=== PATIENT | male | born 1935 | race Caucasian/White ===

== ENCOUNTER 2019-06-24 12:58 | Inpatient (IN) | payer MEDICARE ==
[~2019-06-24] VITALS: Ht 170.2 cm; Wt 83.2 kg
[2019-06-24 15:44] VITALS: BP 161/82
--- NOTE | 2019-06-24 16:00 | NUR ---
Admission Note with Justification for Admission to [facility] Patient admitted to [facility] for protective oversight for emergency stabilization of acute psychiatric crisis. Pt admitted from: [facility] where he was inpatient. Mode of arrival: EMS Accompanied By: EMS Precipitating behaviors that initiated intake and admission: it was reported that patient has had passive SI thoughts, increased anxiety, insomnia, depression, panic attacks and has been trying to stop taking benzodiazepines to which he has severe dependence. Description of failure of out patient attempts at stabilization in previous setting list behavior and medication trials: Patient moved from [place] to [place] to stay with his son after a fall. Patient has been trying to stop taking xanax by weaning himself off but was unsuccessful. Patient was hospitalized at [facility] and medication adjustments were made. He has also seen an outpatient mental health professional in the past. Behaviors and assessment findings upon admission: Patient arrived via EMS from [facility] at 1530. He is calm, pleasant and oriented x4. Vital signs were obtained, belongings inventoried and brief physical was performed. Patient has no areas of skin breakdown. He is up adlib and uses no assistive devices. He stated that in 2019 he had a bad fall, spent about a week at a PT rehab facility and then moved from [place] to [place] to live with his son. He stated he feels like "a bother" and that he "feels he is imposing on his son". He stated he was originally prescribed Xanax PRN many years ago because he would become very nervous whenever he had to go to the doctor. Over the years he began taking more and more Xanax little by little. He stated he has attempted to wean himself off of the Xanax but has not been unable to. He stated he has had depression for at least 2 years and has lost interest in much of the things he formerly enjoyed. He has found no relief with the antidepressants that he has tried. Patient introduced to his roommate and escorted to the day room for a snack. Dinner tray ordered. Plan: Admit for protective oversight for adjustment and stabilization of medications, behaviors and mood. Intense treatment regimen including groups, medication adjustments, therapy, consistent regimen for ADL's, self care, and sleep hygiene. Daily monitoring by Inpatient staff, Psychiatry, and Medical Physician.
[2019-06-24] MEDS ORDERED: MAGNESIUM HYDROXIDE 2,400 MG/30 ML ORAL.SUSP. PO PRN (16:30)
[2019-06-24] MEDS ORDERED: METHYL SALICYLATE/MENTHOL TOPICAL OINTMENT 57GM TUBE. TP PRN (16:30)
[2019-06-24] MEDS ORDERED: DOCU50CA11 PO (17:37)
[2019-06-24] MEDS ORDERED: CYAN100031 PO (17:37)
[2019-06-24] MEDS ORDERED: BISM262T12 PO (17:37)
[2019-06-24] MEDS ORDERED: ESCITALOPRAM OX10 MG PO (17:37)
[2019-06-24] MEDS ORDERED: CAPT50TA2 PO (17:37)
[2019-06-24] MEDS ORDERED: LOVA40TA2 PO (17:37)
[2019-06-24] MEDS ORDERED: LEVO50TA5 PO (17:37)
[2019-06-24] MEDS ORDERED: THIA100T57 PO (17:37)
[2019-06-24] MEDS ORDERED: MAG355OR14 PO (17:37)
[2019-06-24] MEDS ORDERED: MIRT15TA3 PO (17:37)
[2019-06-24] MEDS ORDERED: AMLO5TAB10 PO (17:37)
[2019-06-24] MEDS ORDERED: DIAZ5TAB PO ×2 (17:37)
[2019-06-24] MEDS ORDERED: SUCR1TAB PO (17:37)
[2019-06-24] MEDS ORDERED: HYDR-2145 PO (17:37)
--- NOTE | 2019-06-24 17:41 | NUR ---
Patient is from [place] originally. 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 He retired at the age of 73. After longterm he and his traveled. She 6 years ago. Patient has a history of "heavy alcohol use" and smoked cigarettes until 40 years ago. He stated he no longer drinks. Patient stated that he originally began taking Xanax PRN many years ago (he states probably 40 years ago) because he had a fear of doctors and would take one before an appointment. Throughout the years his prescription was changed to PRN QID for general anxiety and he was taking 1mg 4 times per day. He stated that at times he took it 5-7 times per day. He had decreased his use to TID and then BID but has been unable to stop taking it. He feels that his depression has worsened in the last 2 years. He states he has isolated himself from friends, stopped watching television and going to worship. He stated he had several panic attacks at worship which is one reason he stopped going. He eventually stopped driving r/t dizziness that he was having during this time. He does not feel that any medication that he has been on for depression has decreased or increased his depression. He stated that he has thought he "might as well be " but does not feel that he would attempt suicide. Patient states he has had trouble sleeping for many years. At some point in 2019 he stated he had a pretty bad fall where he sustained a subdural hematoma. He fell in his home and was on the floor for a long time. He was hospitalized for several days in [place], [place] and became weak. When he discharged, he went to a Rehab place for PT/OT to increase his strength. After finishing the therapy, his son came up from [place] and moved the patient in with him to live. Patient states that he appreciates his son allowing him to live there but that he feels "like a bother" and as if he is "imposing". He stated that the original plan was that he would just move in with his son and daughter in law "for the winter". He would like to eventually move back to [place] where he owns a home and has friends. Airam Huggins RN
[2019-06-24] MEDS ORDERED: MAGNESIUM CARBONATE PO PRN (17:45)
[2019-06-24] MEDS ORDERED: ALGINIC ACID PO PRN (17:45)
[2019-06-24] MEDS ORDERED: ALUMINUM HYDROXIDE PO PRN (17:45)
[2019-06-24] MEDS ORDERED: DOCUSATE SODIUM 100 MG CAPSULE PO PRN (18:00)
[2019-06-24] MEDS ORDERED: BISMUTH SUBSALICYLATE 262 MG/15 ML ORAL.SUSP 236ML BOTTLE. PO PRN (18:00)
[2019-06-24 19:05] LABS: BASO # 0.1 x10^3/uL (0.0-0.2); BASO % 1 % (0-3); EOS # 0.4 x10^3/uL (0.0-0.7); EOS % 6 % (0-3); HEMATOCRIT 42.1 % (39.0-53.0); LYMPH # 1.3 x10^3/uL (1.0-4.8); LYMPH % 19 % (24-48); MEAN CORPUSCULAR HEMOGLOBIN 28 pg (25-35); MEAN CORPUSCULAR HGB CONC 33 g/dL (31-37); MEAN CORPUSCULAR VOLUME 84 fL (79-100); MONO # 0.8 x10^3/uL (0.0-1.1); MONO % 12 % (0-9); NEUT # 4.4 x10^3uL (1.8-7.7); NEUT % 62 % (31-73); PLATELET COUNT 258 x10^3/uL (140-400); RED BLOOD COUNT 5.01 x10^6/uL (4.30-5.70); RED CELL DISTRIBUTION WIDTH 15.2 % (11.5-14.5)
[2019-06-24 19:44] LABS: ALBUMIN 3.7 g/dL (3.4-5.0); CALCIUM 8.5 mg/dL (8.5-10.1); CREATININE 1.5 mg/dL (0.7-1.3); GFR 44.6; MAGNESIUM 1.8 mg/dL (1.8-2.4); POTASSIUM 3.7 mmol/L (3.5-5.1); TOTAL BILIRUBIN 0.3 mg/dL (0.2-1.0); TOTAL PROTEIN 7.3 g/dL (6.4-8.2)
[2019-06-24] MEDS: traZODone 50 MG TABLET. PO SCH (19:51)
[2019-06-24] MEDS: MIRTAZAPINE 15 MG TABLET PO SCH (19:51)
[2019-06-24] MEDS: SUCRALFATE 1 GM TABLET. PO SCH (19:51)
[2019-06-24] MEDS: diazePAM 5 MG TABLET PO SCH (19:51)
[2019-06-24] MEDS: LISINOPRIL 10 MG TABLET PO SCH (19:52)
--- NOTE | 2019-06-24 20:54 | PDOC ---
Exam Note: Naveed Note: Please also refer to the separate dictated note~for this date of service dictated separately. Discussed the patient with Nursing staff reviewed the chart.~Reviewed interim history and current functioning. Reviewed vital signs,~Labs/ Radiology~and current medications noted below. Continue current treatment with the changes noted in the dictated addendum note Assessment: Vital Signs/I&O: Vital Signs Date Time Temp Pulse Resp B/P (MAP) Pulse Ox O2 Delivery O2 Flow Rate FiO2 06/24/19 19:52 83 161/82 06/24/19 15:44 98.0 18 97 Room Air Labs: Laboratory Tests Test 06/24/19 18:45 White Blood Count 7.0 x10^3/uL (4.0-11.0) Red Blood Count 5.01 x10^6/uL (4.30-5.70) Hemoglobin 14.0 g/dL (13.0-17.5) Hematocrit 42.1 % (39.0-53.0) Mean Corpuscular Volume 84 fL (79-100) Mean Corpuscular Hemoglobin 28 pg (25-35) Mean Corpuscular Hemoglobin Concent 33 g/dL (31-37) Red Cell Distribution Width 15.2 % (11.5-14.5) H Platelet Count 258 x10^3/uL (140-400) Neutrophils (%) (Auto) 62 % (31-73) Lymphocytes (%) (Auto) 19 % (24-48) L Monocytes (%) (Auto) 12 % (0-9) H Eosinophils (%) (Auto) 6 % (0-3) H Basophils (%) (Auto) 1 % (0-3) Neutrophils # (Auto) 4.4 x10^3uL (1.8-7.7) Lymphocytes # (Auto) 1.3 x10^3/uL (1.0-4.8) Monocytes # (Auto) 0.8 x10^3/uL (0.0-1.1) Eosinophils # (Auto) 0.4 x10^3/uL (0.0-0.7) Basophils # (Auto) 0.1 x10^3/uL (0.0-0.2) Sodium Level 137 mmol/L (136-145) Potassium Level 3.7 mmol/L (3.5-5.1) Chloride Level 99 mmol/L (98-107) Carbon Dioxide Level 28 mmol/L (21-32) Anion Gap 10 (6-14) Blood Urea Nitrogen 19 mg/dL (8-26) Creatinine 1.5 mg/dL (0.7-1.3) H Estimated GFR (Cockcroft-Gault) 44.6 BUN/Creatinine Ratio 13 (6-20) Glucose Level 113 mg/dL (70-99) H Calcium Level 8.5 mg/dL (8.5-10.1) Magnesium Level 1.8 mg/dL (1.8-2.4) Total Bilirubin 0.3 mg/dL (0.2-1.0) Aspartate Amino Transferase (AST) 16 U/L (15-37) Alanine Aminotransferase (ALT) 28 U/L (16-63) Alkaline Phosphatase 68 U/L (46-116) Total Protein 7.3 g/dL (6.4-8.2) Albumin 3.7 g/dL (3.4-5.0) Albumin/Globulin Ratio 1.0 (1.0-1.7) Current Medications: Meds: Current Medications Medications (Trade) Dose Ordered Sig/Adrianne Route PRN Reason Start Time Stop Time Status Last Admin Dose Admin Diazepam (Valium) 5 mg QHS PO 06/24/19 21:00 06/24/19 19:51 Mirtazapine (Remeron) 15 mg HS PO 06/24/19 21:00 06/24/19 19:51 Sucralfate (Carafate) 1 gm BID PO 06/24/19 21:00 06/24/19 19:51 Lisinopril (Prinivil) 10 mg BID PO 06/24/19 21:00 06/24/19 19:52 Trazodone HCl (Desyrel) 50 mg QHS PO 06/24/19 21:00 06/24/19 19:51 I have reviewed the current psychotropics carefully including drug interactions. Risk benefit ratio favors no change other than as noted in my dictated progress note. Diagnosis: Problems: (1) MDD (major depressive disorder) (2) Anxiety disorder (3) Major depressive disorder, recurrent episode (4) Impulse control disorder (5) Suicidal ideation NEISHA CIFUENTES MD Jun 24, 2019 20:54
--- NOTE | 2019-06-24 20:55 | NUR ---
Pt sitting in his room, visiting with roommate at shift change. Pt A/O, calm, pleasant, and interactive. Pt cooperative with assessment and compliant with medications administered whole.
[2019-06-24] MEDS: traZODone 50 MG TABLET. PO PRN (21:58)
--- NOTE | 2019-06-24 22:49 | EKG ---
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
[2019-06-25 05:47] VITALS: BP 138/76
--- NOTE | 2019-06-25 07:33 | NUR ---
Patient states he is very anxious. Given scheduled 0900 Valium at this time. Patient currently has no PRN anxiolytics prescribed.
[2019-06-25 07:36] LABS: BACTERIA,URINE 0 /HPF (0-FEW); BILIRUBIN,URINE NEG (NEG); CLARITY,URINE CLEAR; COLOR,URINE YELLOW; GLUCOSE,URINE NEG (NEG); NITRITE,URINE NEG (NEG); SQUAMOUS EPITHELIAL CELL,UR OCC /LPF; UROBILINOGEN,URINE 0.2 mg/dL (0.2 mg/dL); WBC,URINE RARE /HPF (0-4)
[2019-06-25] MEDS: diazePAM 5 MG TABLET PO SCH ×2 (07:41→20:56)
[2019-06-25] MEDS ORDERED: CITALOPRAM 20 MG TABLET. PO SCH (09:00)
[2019-06-25] MEDS: LISINOPRIL 10 MG TABLET PO SCH ×2 (09:56→20:56)
[2019-06-25] MEDS: amLODIPine BESYLATE 5 MG TABLET PO SCH (09:57)
[2019-06-25] MEDS: SUCRALFATE 1 GM TABLET. PO SCH ×2 (09:57→20:56)
[2019-06-25] MEDS: ATORVASTATIN CALCIUM 10 MG TABLET. PO SCH (09:58)
[2019-06-25] MEDS: THIAMINE 100 MG TABLET. PO SCH (09:58)
[2019-06-25] MEDS: CYANOCOBALAMIN (VITAMIN B-12) 1,000 MCG TABLET. PO SCH (09:58)
[2019-06-25] MEDS: hydroCHLOROthiazide 25 MG TABLET PO SCH (09:58)
--- NOTE | 2019-06-25 11:15 | NUR ---
WEEKLY NOTE: Pt was admitted just last night and appears to be doing okay. Pt is eating 100% and slept 6.75 hours last night. Pt is cooperative and compliant with cares and direction. Pt gets along well with his roommate and is encouraged to attend groups while here. Pt will have his Celexa stopped and start Zoloft 25mg q daily for 3 days then increase to 50mg. Records from [facility] [place] have been requested for pt Head CT and materials to discuss drug withdraw. SW to complete PSA this afternoon and will contact the family.
--- NOTE | 2019-06-25 11:54 | HP ---
ADMIT DATE: 06/24/2019 This late entry 06/24/2019 covers elements not covered in my initial note. IDENTIFYING DATA: The patient is an 84-year-old male, referred to us from [facility] where he was hospitalized for the past few days on account of worsening anxiety with increasing usage of Xanax and having suicidal ideation. The patient is wanting to get off the Xanax and was changed to Valium at [facility], but it was felt he needed further inpatient psychiatric care post-stabilization since he resides at home and had a relatively unstructured situation, has been more depressed, suicidal, and potential danger to himself. CHIEF COMPLAINT: "I have panic attacks. I can't sleep. Xanax help me with that, but I want to get off it." HISTORY OF PRESENT ILLNESS: The patient has an approximate 2-year history of increasing Xanax abuse and most recently, he has been using about 2.5-3 mg a day. He admits to feeling depressed at times, overwhelmed with panic attacks and symptoms of agoraphobia, marked insomnia. He took 5-7 Xanax in overdose attempt, though he states he was just trying to quell his anxiety. No clear history of bipolar disorder or homicidal ideation. PAST PSYCHIATRIC HISTORY: Positive for depression, anxiety, panic attacks. MEDICAL HISTORY: Positive for past history of alcohol abuse, GERD, hypertension, essential tremors, history of subdural hematoma, history of falls, aortic aneurysm, hyperlipidemia, hypothyroidism, blurred vision, history of CA prostate, status post prostatectomy, migraine headaches, arthritis, joint pain, status post cataract extraction. Apparently, a CT head was done at [facility]. We will get those results. Hard of hearing, CODE STATUS: Full code. DRUG ALLERGIES: Negative. ACCU-CHEKS: Negative. Ambulates up ad renu. CURRENT PSYCHOTROPICS: Valium 2.5 mg a.m., 5 mg at bedtime, Celexa 20 mg a day, Remeron 15 mg at bedtime, trazodone 50 mg at bedtime, may repeat x 1 FAMILY HISTORY: Noncontributory. SOCIAL HISTORY: Positive for alcohol abuse, which the patient minimizes. No physical, sexual or elder abuse. He is not known to be a perpetrator. REACTION TO HOSPITALIZATION: The patient accepting of this. ASSETS: Supportive family. The patient was living in [place] by himself since his about 2 years back and then moved to this area to be closer to his son, but he has been unable to manage at home with the son's family. No physical, sexual or elder abuse history is noted. Not known to be a perpetrator. MENTAL STATUS EXAMINATION: The patient was seen individually evening of 06/24/2019. He is reasonably oriented, somewhat hard of hearing, I had to talk loudly into his ear. Speech is coherent, abstraction fair, computation somewhat impaired, language function intact, attention span short. Mood is depressed, anxious. Affect is mood congruent. He is quite restless, anxious. No active suicidal or homicidal ideation. Attention span short. LABORATORY DATA: Reviewed. IMPRESSION: Major depressive disorder, recurrent, severe panic disorder with agoraphobia, anxiety disorder, unspecified; rule out bipolar disorder, unspecified; past history of alcohol abuse. Rest as above. PLAN: Admit to geropsychiatry unit at [facility]. I will see the patient daily individually from a psychiatric standpoint. Medical followup with Dr. Segovia. We will continue Valium at current dosage. Change Celexa to Zoloft 25 mg, increasing dosage and may need to increase the Seroquel, but we will make all these decisions post baseline assessment. Estimated length of stay 10-12 days. DISPOSITION PLANS: The patient wants to return to [place], but for now, he will return back to his son's home in [place]. NEISHA CIFUENTES MD DR: TANNER/zonia JOB#: [id number] / [id number]
--- NOTE | 2019-06-25 13:02 | NUR ---
Patient came to nurses station after lunch to request something for anxiety. He had visible tremble and was wringing his hands. Dr. Kendall estrada, received order for PRN Hydroxyzine 25mg PRN Q2hrs for anxiety, max daily dose 100mg/24hrs. Dr. Argueta also stated that patient could have one dose of seroquel 12.5 mg at this time.
[2019-06-25] MEDS ORDERED: QUEtiapine 25 MG TABLET. PO ONE (13:15)
[2019-06-25] MEDS: hydrOXYzine HCL 25 MG TABLET PO PRN ×2 (13:26→20:56)
--- NOTE | 2019-06-25 14:00 | NUR ---
PSYCHOSOCIAL ASSESSMENT ADMISSION DATE: 06/24/19 CONTACT INFORMATION: DPOA/Guardian Contact Name: Roosevelt Rouse JR Contact Address: [address] [place] [id number] Contact Phone #: ETHNIC ORIGIN: REASONS FOR ADMISSION: Anxiety/Panic Sig. Change Sleep Suicidal ideation ADDITIONAL ADMISSION COMMENTS: According to the intake, pt is addicted to Xanax and wants to quit; having passive SI, anxious and insomnia REASON FOR ADMISSION IN PATIENT/FAMILY'S OWN WORDS: According to pt, he really wants to get his anxiety together so he can go home and get back into a routine. PATIENT/FAMILY EXPECTATIONS FOR ADMISSION: Medication management Decrease in anxiety and Xanax use. LIVING SITUATION: Patient lives with: Child/children Other living arrangements: Lives with his son in [place], [place] FAMILY RELATIONS: Marital Status: # of Marriages: 1 # of Children: 2 [facility] Family Support: Unavailable Additional Comments r/t Family: Pt met his , Tracie, through a mutual friend. He reports that [place] and his friend's girlfriend brought Tracie. Pt reports that Tracie was 27 when they met and he was 60. Pt has 2 children from this marriage Roosevelt ENGLISH and a dtr Vilma. Pt roughly 6 years ago. SIGNIFICANT PSYCHIATRIC/MEDICAL HISTORY: Psychiatric/Treatment History: This is pt first admission to [facility]. He reports hx of anxiety and panic. Pertinent Family History: None HISTORICAL DATA: Childhood Environment: Stressful Supportive Childhood Environment Additional Comments: Pt reports that he had a loving family environment. He reports soem stress as his father worked 2 jobs: his day job at a factory and his evening job playing piano in a local tavern. "he'd come home go to sleep and start his day all over again 3-4 hours later". Pt reports that his mother was great; however, over time, his father did start to drink more than normal and once he bought one of the local taverns, he drinking steadily increase. 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 However, pt has not attended for some time as he had a Panic attack during the service and cannot bring himself to go back. Sexual orientation: Heterosexual Educational Level: Pt graduated the 12th grade (high school). Past/Present Interests/Hobbies: Jacinto girls, fish, boat and perez. Financial support/resources: Halfway/Pension Social Security Monthly income: Person handling finances: Pt son cares for pt financials. Do you have a history of legal problems: N Cultural considerations: None SOCIAL RELATIONSHIPS-CURRENT/PAST: Psychiatrist: None PCP: Dr. Sharmila Wiggins Counselor/Therapist: None Veterans' Administration: None Support Group: None Elementary School Science Teacher/Interlocking And Signal Mechanic: None Other relationships: None STRENGTHS & WEAKNESSES: Patient's strengths: Good verbal skills Ambulatory Approachable Other patient strengths: Patient's weaknesses: Lack of resources Other Other patient weaknesses: Increase in anxiety and Xanax use PRELIMINARY PLAN OF TREATMENT: Preliminary plan: Dec. Anxiety/Panic Dec. Symp. Depression Decrease Isolation Promote Coping Skill Medication Stabilization Other preliminary treatment comments: DISCHARGE PLANNING: Discharge planning/disposition: Current Living Arrange. Additional discharge needs identified: Need for either [facility] or home with son and continued mental health services. ADDITIONAL INFORMATION: Other Pertinent Data: SW Corn Popper completed PSA with pt and SW sat in. Pt was alert enough to report that he knows his past but if you asked him things about yesterday, he would not be able to report anything. He even stated "I won't remember your name even if you tell me 20x". Pt reports that he would like to go back and live in his hometown of [place], [place]. "I've lived there all my life, I don't want to live down here". Pt is hopeful to have his Xanax addiction decreased. SW will plan to contact pt son to get more information.
[2019-06-25 15:23] VITALS: BP 120/77
[2019-06-25 16:00] LABS: THYROID STIM HORMONE (TSH) 3.08 uIU/mL (0.358-3.740)
[2019-06-25] MEDS: QUEtiapine 25 MG TABLET. PO SCH (17:20)
[2019-06-25] MEDS: MIRTAZAPINE 15 MG TABLET PO SCH (20:56)
[2019-06-25] MEDS: traZODone 50 MG TABLET. PO PRN (20:57)
[2019-06-25] MEDS: traZODone 50 MG TABLET. PO SCH (20:57)
--- NOTE | 2019-06-25 21:01 | PDOC ---
Exam Note: Naveed Note: Please also refer to the separate dictated note~for this date of service dictated separately.~Patient seen individually. Discussed the patient with Nursing staff reviewed the chart.~Reviewed interim history and current functioning. Reviewed vital signs,~Labs/ Radiology~and current medications noted below. Continue current treatment with the changes noted in the dictated addendum note Assessment: Vital Signs/I&O: Vital Signs Date Time Temp Pulse Resp B/P (MAP) Pulse Ox O2 Delivery O2 Flow Rate FiO2 06/25/19 20:56 76 120/77 06/25/19 15:23 98.3 18 98 Room Air I & O 06/24/19 06/24/19 06/25/19 15:00 23:00 07:00 Intake Total 480 ml Balance 480 ml Labs: Laboratory Tests Test 06/25/19 05:48 Urine Collection Type Unknown Urine Color Yellow Urine Clarity Clear Urine pH 7.0 Urine Specific [place] 1.020 Urine Protein Neg (NEG-TRACE) Urine Glucose (UA) Neg mg/dL (NEG) Urine Ketones (Stick) Neg mg/dL (NEG) Urine Blood Small (NEG) Urine Nitrite Neg (NEG) Urine Bilirubin Neg (NEG) Urine Urobilinogen Dipstick 0.2 mg/dL (0.2 mg/dL) Urine Leukocyte Esterase Neg (NEG) Urine RBC 1-2 /HPF (0-2) Urine WBC Rare /HPF (0-4) Urine Squamous Epithelial Cells Occ /LPF Urine Bacteria 0 /HPF (0-FEW) Current Medications: Meds: Current Medications Medications (Trade) Dose Ordered Sig/Adrianne Route PRN Reason Start Time Stop Time Status Last Admin Dose Admin Amlodipine Besylate (Norvasc) 5 mg DAILY PO 06/25/19 09:00 06/25/19 09:57 Diazepam (Valium) 2.5 mg DAILY PO 06/25/19 09:00 06/25/19 07:41 Hydrochlorothiazide (Hydrodiuril) 25 mg DAILY PO 06/25/19 09:00 06/25/19 09:58 Cyanocobalamin (Vitamin B-12) 2,000 mcg DAILY PO 06/25/19 09:00 06/25/19 09:58 Citalopram Hydrobromide (CeleXA) 20 mg DAILY PO 06/25/19 09:00 06/25/19 11:06 DC 06/25/19 10:00 Atorvastatin Calcium (Lipitor) 10 mg DAILY PO 06/25/19 09:00 06/25/19 09:58 Thiamine HCl (Vitamin B-1) 250 mg DAILY PO 06/25/19 09:00 06/25/19 09:58 Quetiapine Fumarate (SEROquel) 12.5 mg 0900,1700 PO 06/25/19 17:00 06/25/19 17:20 Hydroxyzine HCl (Atarax) 25 mg PRN Q2HR PRN PO anxiety 06/25/19 13:00 06/25/19 20:56 Quetiapine Fumarate (SEROquel) 12.5 mg 1X ONCE PO 06/25/19 13:15 06/25/19 13:16 DC 06/25/19 13:26 I have reviewed the current psychotropics carefully including drug interactions. Risk benefit ratio favors no change other than as noted in my dictated progress note. Diagnosis: Problems: (1) MDD (major depressive disorder) (2) Anxiety disorder (3) Major depressive disorder, recurrent episode (4) Impulse control disorder (5) Suicidal ideation NEISHA CIFUENTES MD Jun 25, 2019 21:01
--- NOTE | 2019-06-25 21:37 | NUR ---
Patient is located in patient room at time of assessment. Patient reports having anxiety. Patient also states he needs something for sleep. Patient is compliant with medications and assessment. Patient takes medications whole and reports no pain at this time. Patient was given PRN Valium,. PRN trazodone, and PRN hydroxyzine at HS.
[2019-06-25 22:06] LABS: THYROXINE 7.1 ug/dL (4.5-12.0)
[2019-06-26 00:06] LABS: HEMOGLOBIN A1C 5.8 % (4.8-5.6)
--- NOTE | 2019-06-26 01:14 | CONS ---
DATE OF CONSULTATION: 06/25/2019 REASON FOR CONSULTATION: Medical management. 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 Medically, the patient has multiple medical problems including alcohol abuse, hypertension, essential tremor, history of subdural hematoma after a fall, aortic sclerosis, hyperlipidemia, hypothyroidism, history of prostate cancer, status post prostatectomy, migraine headache, and arthritis. PAST SURGICAL HISTORY: Significant for prostatectomy and bilateral cataract extraction. ALLERGIES: He has no known drug allergies. MEDICATIONS: He is currently on following medications: He is on lovastatin 40 mg daily, amlodipine besylate 5 mg daily, captopril 50 mg twice a day, escitalopram oxalate 10 mg daily, mirtazapine 15 mg at bedtime, diazepam 5 mg at bedtime, diazepam 2.5 mg daily, hydrochlorothiazide 25 mg once a day, Gaviscon liquid 15 mL after meals and as needed, bismuth subsalicylate for Pepto-Bismol 30 mL 4 times a day as needed, Colace 50 mg twice a day, sucralfate 1 gram twice a day, levothyroxine sodium 50 mcg once a day, cyanocobalamin 2000 mcg once a day, and thiamine 250 mg once a day. FAMILY HISTORY: Noncontributory. SOCIAL HISTORY: He is , has a son and daughter. He does not smoke, but used to drink alcohol heavily. Currently, he is retired and lives with his son. REVIEW OF SYSTEMS: As per history of present illness. PHYSICAL EXAMINATION GENERAL: When I examined him this afternoon, he was sitting at the edge of the bed comfortably in no apparent distress. There is no pallor, jaundice, cyanosis, or thyromegaly. No jugular venous distension. No limb edema. VITAL SIGNS: His heart rate was 76, blood pressure 120/77, temperature 98.3, respiratory rate was 18, and oxygen saturation was 98%. HEAD, EYES, EARS, NOSE, AND THROAT: Showed he is normocephalic, atraumatic. NECK: Supple. HEART: Showed normal first and second heart sounds. No gallop, rub or murmur. CHEST: Clear to auscultation. No crepitation or rhonchi. ABDOMEN: Slightly distended, soft, nontender. NEUROLOGIC: He is awake, alert, responding appropriately. All cranial nerves intact. EXTREMITIES: He moves extremities without difficulty, ambulates without assistance or assistive devices. LABORATORY DATA: On admission showed a white cell count 7000, hemoglobin 14, hematocrit 42, MCV 84 and platelet count 258,000. Serum sodium was 137, potassium 3.7, chloride 99, bicarbonate 28, anion gap of 10, BUN 19, creatinine 1.5, estimated GFR was 44 mL per minute, his glucose 113, calcium was 8.5, and magnesium 1.8. Serum iron, TIBC and iron saturation are all consistent with iron deficiency anemia, although his hemoglobin and hematocrit are within normal limits. His total bilirubin, AST, ALT, alkaline phosphatase were normal. Total protein 7.3, albumin 3.7. Serum triglycerides were 83, total cholesterol 182, LDL cholesterol 108, VLDL was 16, and HDL was 58 and the ratio was 3. His B12 1087 pg. His 25-hydroxy vitamin D is low at 23 and TSH was normal at 3.080. His urinalysis was essentially unremarkable and his treponema pallidum antibody was nonreactive. 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 He has passive suicidal ideation, extremely anxious, feels like he is having panic attacks, has insomnia, experiencing Xanax withdrawal, all this in a background of major depressive disorder, generalized anxiety disorder, benzodiazepine use that is severe. Medically, he has obviously history of alcohol abuse, has also hypertension, essential tremors, hyperlipidemia, hypothyroidism, migraine headache as well as arthritis, however, the patient generally seems to be all in all medically stable. His vital signs are within normal limits. His lab works are within acceptable range, except perhaps his vitamin D is low. I will start him on cholecalciferol 50,000 units once a week. I will obviously follow all the lab work that are still pending at the time of this dictation and make any necessary recommendations. Thank you, Dr. Argueta for allowing me to participate in the care of this patient. SPEEDY DWYER MD DR: EDMOND/zonia JOB#: [id number] / [id number]
[2019-06-26] MEDS: LEVOTHYROXINE 50 MCG TABLET PO SCH (05:29)
[2019-06-26] MEDS: hydrOXYzine HCL 25 MG TABLET PO PRN (05:29)
[2019-06-26 05:50] VITALS: BP 141/78
[2019-06-26] MEDS: hydroCHLOROthiazide 25 MG TABLET PO SCH (08:17)
[2019-06-26] MEDS: CYANOCOBALAMIN (VITAMIN B-12) 1,000 MCG TABLET. PO SCH (08:17)
[2019-06-26] MEDS: SERTRALINE 25 MG TABLET. PO SCH (08:17)
[2019-06-26] MEDS: SUCRALFATE 1 GM TABLET. PO SCH ×2 (08:17→20:23)
[2019-06-26] MEDS: LISINOPRIL 10 MG TABLET PO SCH ×2 (08:18→20:24)
[2019-06-26] MEDS: diazePAM 5 MG TABLET PO SCH ×2 (08:18→20:24)
[2019-06-26] MEDS: amLODIPine BESYLATE 5 MG TABLET PO SCH (08:18)
[2019-06-26] MEDS: ATORVASTATIN CALCIUM 10 MG TABLET. PO SCH (08:18)
[2019-06-26] MEDS: THIAMINE 100 MG TABLET. PO SCH (08:19)
[2019-06-26] MEDS: QUEtiapine 25 MG TABLET. PO SCH ×2 (08:19→17:00)
--- NOTE | 2019-06-26 10:16 | NUR ---
Activity Therapy Assessment Completed based on notes, observation, and interview. Pt. was in his room with his room when therapist knocked on door. Pt. was awake and willing to speak with therapist. Pt. ambulates independently, has strong verbal skills, in tact memory, and pleasant demeanor. Pt. shared his story of how he came to [facility]- he has been using anxiety meds excessively for years and is trying to wean himself off them. He is from [place], [place] where he lived with his until she passed about six years ago. He had a fall a year ago and was very weak after rehab. His son moved him out to [place] to live with him and his daughter in law. While there, he states he 'feels like a burden' and 'wishes he were ' but does not believe he would attempt anything. Pt. is here for help with anxiety, depression, and SI. 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 When asked about interests, Pt. stated 'I haven't had hobbies or things for a long time. I've lost interest in just about everything.' Pt. followed up by stating 'If you remind me and invite me, I will try a group or two. I get overwhelmed and anxious when everyone is loud though.' Pt. stated he's used 'alcohol and meds' for stress and would appreciate new coping skills. Pt. is often withdrawn to his room and rarely comes out to the day room. Pt. socializes well with roommate and is kind and cooperative with staff. Initial goal aimed to increase engagement: Pt. will participate in at least two Activity Therapy groups per week.
[2019-06-26 15:43] VITALS: BP 125/69
--- NOTE | 2019-06-26 16:15 | NUR ---
SW was stopped by pt to ask if he would be able to talk to a SW. SW informed him that she is his SW and pt wanted to see if he would be able to discharge back home to [place]. He reports that he has plenty of help there and support from friends and his yarsanism community. He is aware that his son is looking for placement/[facility] and he does not wish to stay in [place]. FADIA has attempted 2x to contact pt son and was told that the number was not in service. FADIA will attempt again next week to discuss discharge options for pt.
[2019-06-26] MEDS ORDERED: traZODone 100 MG TABLET. PO PRN (18:15)
[2019-06-26] MEDS ORDERED: traZODone 50 MG TABLET. PO SCH (18:15)
--- NOTE | 2019-06-26 18:18 | NUR ---
Pt up for meals. Pt usually stays in room most times. Has been compliant with meds and cares. At breakfast pt stated he was getting anxious. Explained the purpose of his current med regimen, including the new seroquel.
[2019-06-26] MEDS: traZODone 100 MG TABLET. PO SCH (20:24)
[2019-06-26] MEDS: MIRTAZAPINE 15 MG TABLET PO SCH (20:24)
--- NOTE | 2019-06-26 21:03 | PDOC ---
Exam Note: Naveed Note: Please also refer to the separate dictated note~for this date of service dictated separately.~Patient seen individually. Discussed the patient with Nursing staff reviewed the chart.~Reviewed interim history and current functioning. Reviewed vital signs,~Labs/ Radiology~and current medications noted below. Continue current treatment with the changes noted in the dictated addendum note Assessment: Vital Signs/I&O: Vital Signs Date Time Temp Pulse Resp B/P (MAP) Pulse Ox O2 Delivery O2 Flow Rate FiO2 06/26/19 20:24 75 125/69 06/26/19 15:43 97.6 16 98 06/25/19 15:23 Room Air I & O 06/25/19 06/25/19 06/26/19 15:00 23:00 07:00 Intake Total 1200 ml 240 ml Balance 1200 ml 240 ml Current Medications: Meds: Current Medications Medications (Trade) Dose Ordered Sig/Adrianne Route PRN Reason Start Time Stop Time Status Last Admin Dose Admin Levothyroxine Sodium (Synthroid) 50 mcg QODAY@0600 PO 06/26/19 06:00 06/26/19 05:29 Sertraline HCl (Zoloft) 25 mg DAILY PO 06/26/19 09:00 06/28/19 11:00 06/26/19 08:17 Trazodone HCl (Desyrel) 100 mg QHS PO 06/26/19 21:00 06/26/19 20:24 I have reviewed the current psychotropics carefully including drug interactions. Risk benefit ratio favors no change other than as noted in my dictated progress note. Diagnosis: Problems: (1) MDD (major depressive disorder) (2) Anxiety disorder (3) Major depressive disorder, recurrent episode (4) Impulse control disorder (5) Suicidal ideation NEISHA CIFUENTES MD Jun 26, 2019 21:02
--- NOTE | 2019-06-26 22:47 | NUR ---
Pt withdrawn to his room the majority of the evening. Pt very pleasant and interactive when approached. Complains of anxiety. HS medications administered after going through the medications and their indications with the pt. Pt currently sleeping in his room.
--- NOTE | 2019-06-26 23:08 | PN ---
DATE: 06/25/2019 PSYCHIATRIC PROGRESS NOTE This late entry 06/25/2019 covers elements not covered in my initial note. SUBJECTIVE: I met with the patient evening of 06/25/2019 and staffed at a treatment team meeting with the entire team in the morning. I reviewed the patient's history at length. Slept 6-3/4 hours. Appetite 100%. Pleasant, calm. We will check if has had a CT head and if not, we will complete one. In fact reportedly he has had one at [facility]. He reviewed his history at length. He was living in [place], a couple of years back. He stayed there for a while continue to use about 2.5-3 mg of Xanax daily for anxiety and then the son brought him to the [facility]. The patient is wanting to get back to [place], anxiety has been worsened and he was switched to Valium at [facility]. Nursing staff had called me as an emergency during the day for his ongoing anxiety, panic attacks, despite his current regimen and we added hydroxyzine p.r.n. REVIEW OF SYSTEMS: No CV, , pulmonary, eye system symptoms on review. MENTAL STATUS EXAM: Reasonably oriented. Speech is coherent, abstraction fair, computation impaired, language function intact. Mood and affect labile, anxious, somewhat dysphoric. LABORATORY DATA: Reviewed. IMPRESSION: Panic disorder with agoraphobia. Major depressive disorder, recurrent. Rest unchanged. Past history of alcohol abuse. PLAN: Change Celexa to Zoloft 25 mg a day for 3 days, then 50 mg a day. Continue Valium total 7.5 mg a day, Remeron 15 mg at bedtime, trazodone 50 mg at bedtime, Seroquel will be started 12.5 mg 9:00 a.m. and 5:00 p.m. as a mood stabilizer. Adjust further as clinically indicated. NEISHA CIFUENTES MD DR: TANNER/zonia JOB#: [id number] / [id number]
[2019-06-27 05:17] VITALS: BP 149/76
[2019-06-27] MEDS: hydrOXYzine HCL 25 MG TABLET PO PRN ×2 (05:55→14:19)
[2019-06-27] MEDS: ATORVASTATIN CALCIUM 10 MG TABLET. PO SCH (07:45)
[2019-06-27] MEDS: amLODIPine BESYLATE 5 MG TABLET PO SCH (07:45)
[2019-06-27] MEDS: QUEtiapine 25 MG TABLET. PO SCH ×2 (07:46→17:00)
[2019-06-27] MEDS: LISINOPRIL 10 MG TABLET PO SCH ×2 (07:46→20:50)
[2019-06-27] MEDS: hydroCHLOROthiazide 25 MG TABLET PO SCH (07:46)
[2019-06-27] MEDS: SERTRALINE 25 MG TABLET. PO SCH (07:46)
[2019-06-27] MEDS: SUCRALFATE 1 GM TABLET. PO SCH ×2 (07:46→20:50)
[2019-06-27] MEDS: CYANOCOBALAMIN (VITAMIN B-12) 1,000 MCG TABLET. PO SCH (07:46)
[2019-06-27] MEDS: diazePAM 5 MG TABLET PO SCH ×2 (07:46→20:50)
[2019-06-27] MEDS: THIAMINE 100 MG TABLET. PO SCH (07:47)
[2019-06-27] MEDS: MAG HYDROX/AL HYDROX/SIMETH 30 ML ORAL.SUSP PO PRN (10:30)
[2019-06-27 16:02] VITALS: BP 120/70
--- NOTE | 2019-06-27 16:49 | NUR ---
Pt up adl to meals. Took shower in am. C/o Escobedo in am. Upset stomach mid morning relieved with mylanta. C/o anxiety after lunch. Hydroxyzine given. Is in room conversing with room mate. Has been compliant with meds and cares.
[2019-06-27] MEDS: traZODone 100 MG TABLET. PO SCH (20:50)
[2019-06-27] MEDS: MIRTAZAPINE 15 MG TABLET PO SCH (20:50)
--- NOTE | 2019-06-27 21:39 | PDOC ---
Exam Note: Naveed Note: Please also refer to the separate dictated note~for this date of service dictated separately.~Patient seen individually. Discussed the patient with Nursing staff reviewed the chart.~Reviewed interim history and current functioning. Reviewed vital signs,~Labs/ Radiology~and current medications noted below. Continue current treatment with the changes noted in the dictated addendum note Assessment: Vital Signs/I&O: Vital Signs Date Time Temp Pulse Resp B/P (MAP) Pulse Ox O2 Delivery O2 Flow Rate FiO2 06/27/19 20:50 73 120/70 06/27/19 16:02 97.0 18 96 06/25/19 15:23 Room Air I & O 06/26/19 06/26/19 06/27/19 15:00 23:00 07:00 Intake Total 960 ml 600 ml Balance 960 ml 600 ml Current Medications: I have reviewed the current psychotropics carefully including drug interactions. Risk benefit ratio favors no change other than as noted in my dictated progress note. Diagnosis: Problems: (1) MDD (major depressive disorder) (2) Anxiety disorder (3) Major depressive disorder, recurrent episode (4) Impulse control disorder (5) Suicidal ideation NEISHA CIFUENTES MD Jun 27, 2019 21:39
--- NOTE | 2019-06-28 04:56 | NUR ---
Angelia Note: Patient was in room at time of medication administration and assessment. Patient was calm, compliant and cooperative. Pleasantly confused at times. No other notable behaviors at this time. Addendum: 06/28/19 at 0608 by LUIS ANTONIO ASCENCIO RN PRN for anxiety given in AM. Patient seemed very agitated; medication seeking. HR 85
[2019-06-28] MEDS: LEVOTHYROXINE 50 MCG TABLET PO SCH (05:22)
[2019-06-28] MEDS: hydrOXYzine HCL 25 MG TABLET PO PRN (05:39)
[2019-06-28 06:43] VITALS: BP 138/80
[2019-06-28] MEDS: CYANOCOBALAMIN (VITAMIN B-12) 1,000 MCG TABLET. PO SCH (08:15)
[2019-06-28] MEDS: diazePAM 5 MG TABLET PO SCH ×2 (08:15→20:51)
[2019-06-28] MEDS: QUEtiapine 25 MG TABLET. PO SCH ×3 (08:15→17:00)
[2019-06-28] MEDS: SUCRALFATE 1 GM TABLET. PO SCH ×2 (08:16→20:51)
[2019-06-28] MEDS: LISINOPRIL 10 MG TABLET PO SCH ×2 (08:16→20:51)
[2019-06-28] MEDS: SERTRALINE 25 MG TABLET. PO SCH (08:16)
[2019-06-28] MEDS: THIAMINE 100 MG TABLET. PO SCH (08:16)
[2019-06-28] MEDS: ATORVASTATIN CALCIUM 10 MG TABLET. PO SCH (08:16)
[2019-06-28] MEDS: hydroCHLOROthiazide 25 MG TABLET PO SCH (08:16)
[2019-06-28] MEDS: amLODIPine BESYLATE 5 MG TABLET PO SCH (08:16)
[2019-06-28] MEDS: MAG HYDROX/AL HYDROX/SIMETH 30 ML ORAL.SUSP PO PRN ×2 (11:00→15:32)
--- NOTE | 2019-06-28 14:06 | NUR ---
Pt up adl for meals. Has been compliant with meds and cares. C/O upset stomach prior to lunch. Mylanta given.
--- NOTE | 2019-06-28 15:05 | PN ---
DATE: 06/26/2019 This late entry 06/26/2019 covers elements not covered in my initial note. SUBJECTIVE: I met with the patient in the evening. Per KRISTY Gates, the patient slept 8 hours previous night. He remains anxious, apprehensive. Denies suicidal ideation. We will check a CT head if not done at [facility] prior to his transition here. He complains of ongoing insomnia despite trazodone. REVIEW OF SYSTEMS: No CV, , pulmonary, eye system symptoms on review. MENTAL STATUS EXAMINATION: Reasonably oriented. Speech is coherent. Abstraction fair. Computation impaired. Language function intact. Attention span short. Mood and affect somewhat withdrawn, anxious. LABORATORY DATA: Reviewed. IMPRESSION: Major depressive disorder, generalized anxiety disorder, panic disorder. PLAN: Check CT head as noted. Increase trazodone to 100 mg at bedtime, may repeat x 1 for insomnia instead of the 50 mg. Continue to gradually increase the Zoloft. Maintain Valium and Seroquel, the latter may need to be increased. Continue Remeron 15 mg at bedtime. MAN Braulio CIFUENTES MD DR: TANNER/zonia JOB#: [id number] / [id number]
[2019-06-28] MEDS: ACETAMINOPHEN 325 MG TABLET PO PRN (15:32)
[2019-06-28 15:46] VITALS: BP 116/69
--- NOTE | 2019-06-28 20:50 | PDOC ---
Exam Note: Naveed Note: Please also refer to the separate dictated note~for this date of service dictated separately.~Patient seen individually. Discussed the patient with Nursing staff reviewed the chart.~Reviewed interim history and current functioning. Reviewed vital signs,~Labs/ Radiology~and current medications noted below. Continue current treatment with the changes noted in the dictated addendum note Assessment: Vital Signs/I&O: Vital Signs Date Time Temp Pulse Resp B/P (MAP) Pulse Ox O2 Delivery O2 Flow Rate FiO2 06/28/19 15:46 97.2 71 20 116/69 (85) 98 06/25/19 15:23 Room Air I & O 06/27/19 06/27/19 06/28/19 15:00 23:00 07:00 Intake Total 1200 ml 480 ml Balance 1200 ml 480 ml Current Medications: Meds: Current Medications Medications (Trade) Dose Ordered Sig/Adrianne Route PRN Reason Start Time Stop Time Status Last Admin Dose Admin Quetiapine Fumarate (SEROquel) 25 mg NOON PO 06/28/19 12:00 06/28/19 12:00 I have reviewed the current psychotropics carefully including drug interactions. Risk benefit ratio favors no change other than as noted in my dictated progress note. Diagnosis: Problems: (1) MDD (major depressive disorder) (2) Anxiety disorder (3) Major depressive disorder, recurrent episode (4) Impulse control disorder (5) Suicidal ideation NEISHA CIFUENTES MD Jun 28, 2019 20:50
[2019-06-28] MEDS: traZODone 100 MG TABLET. PO SCH (20:51)
[2019-06-28] MEDS: AMITRIPTYLINE HCL 25 MG TABLET PO SCH (20:52)
--- NOTE | 2019-06-28 21:19 | PN ---
DATE: 06/27/2019 PSYCHIATRIC PROGRESS NOTE This late entry 06/27/2019 covers elements not covered in my initial note. SUBJECTIVE: I met with the patient evening of 06/27/2019. The patient slept 7-1/4 hours previous night. 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 He complains of some GI symptoms and headaches. We will defer to Dr. Segovia. Trazodone was increased the day before for his insomnia, which persists. REVIEW OF SYSTEMS: Other than above, no CV, , pulmonary, eye system symptoms on review. MENTAL STATUS EXAM: Reasonably oriented. Speech is coherent, very pleasant, interactive as I met with him in his room at some length. Abstraction fair, computation reasonable, language function intact, attention span short. Mood and affect remain somewhat anxious, depressed. No suicidal or homicidal ideation. LABORATORY DATA: Reviewed. IMPRESSION: Major depressive disorder; anxiety disorder, unspecified; panic disorder. PLAN: Add Seroquel 25 mg at noon. Continue 12.5 mg at 0900 and 1700. Change Remeron 15 mg at bedtime to amitriptyline 25 mg at bedtime. Continue to gradually increase the Zoloft. Continue trazodone scheduled plus p.r.n. Rest unchanged for now. NEISHA CIFUENTES MD DR: TANNER/zonia JOB#: [id number] / [id number]
--- NOTE | 2019-06-28 23:12 | NUR ---
Pt withdrawn to his room all evening, conversing with his roommate. Pt pleasant and interactive when approached. States that he is still "terribly anxious." Compliant with whole medications. Pt currently sleeping in bed.
[2019-06-29 05:54] VITALS: BP 125/66
[2019-06-29] MEDS: hydrOXYzine HCL 25 MG TABLET PO PRN ×2 (06:06→14:02)
--- NOTE | 2019-06-29 06:17 | NUR ---
Pt sleeping soundly when approached for his vital signs this morning. Once pt was woken up, pt stated "I need something for anxiety. I'm shaking like a leaf." Nurse encouraged pt to try to relaxation techniques. Pt became irritated and stated that he needed medication. PRN Atarax administered.
[2019-06-29] MEDS: THIAMINE 100 MG TABLET. PO SCH (08:09)
[2019-06-29] MEDS: SERTRALINE 50 MG TABLET. PO SCH (08:10)
[2019-06-29] MEDS: CYANOCOBALAMIN (VITAMIN B-12) 1,000 MCG TABLET. PO SCH (08:10)
[2019-06-29] MEDS: SUCRALFATE 1 GM TABLET. PO SCH ×2 (08:10→20:51)
[2019-06-29] MEDS: QUEtiapine 25 MG TABLET. PO SCH ×3 (08:11→17:18)
[2019-06-29] MEDS: LISINOPRIL 10 MG TABLET PO SCH ×2 (08:11→20:52)
[2019-06-29] MEDS: diazePAM 5 MG TABLET PO SCH ×2 (08:11→20:52)
[2019-06-29] MEDS: hydroCHLOROthiazide 25 MG TABLET PO SCH (08:12)
[2019-06-29] MEDS: amLODIPine BESYLATE 5 MG TABLET PO SCH (08:12)
--- NOTE | 2019-06-29 10:17 | NUR ---
Nursing note: Pt in dining room this morning for meds and assessment. He was compliant with his meds whole and cooperative with his assessment. Pt only complaint this morning was of anxiety. Scheduled meds were given. Will continue to monitor.
--- NOTE | 2019-06-29 13:22 | [place] PLAN ---
Interdisciplinary Tx Plan Admission Information Jun 24, 2019 at 15:25 Legal Status (on Admission): Voluntary DPOA/Guardian Name: Roosevelt Rouse JR Contact Verified Code Status: Full Code Allergies: Coded Allergies: No Known Drug Allergies (Unverified , 06/24/19) Diagnoses Primary Diagnosis: MDD, PIPE, Benzodiazepine Abuse Reasons for Admission: Sig. Change Sleep, Anxiety/Panic, Suicidal ideation Problem in Patient's Words: According to pt, he really wants to get his anxiety together so he can go home and get back into a routine. Additional Admission Comments: According to the intake, pt is addicted to Xanax and wants to quit; having passive SI, anxious and insomnia Problems Active Problems: Withdrawn to room Anxiety Inactive Problems: Medication compliant Pt Strengths/Limitations Ability for Roosevelt: Fair Cognitive Functioning/Ability: Fair Communication Skills/Ability: Fair Financial Resources: Fair Insight/Judgement: Poor Intellectual Ability: Fair Physical Health: Fair Social Skills: Poor Stability in Family: Fair Stability in School/Work: Poor Verbal Skills: Fair Discharge Criteria Discharge Criteria: Able meet basic life need, Able to meet health needs, Adequate arrangements @DC, Verbal commit aftercare, Improved behavior, Improved mood/thought Preliminary Discharge Plan Preliminary DC Plan: Current Living Arrange. Special Precautions Fall Risk: Low Initial D/C Plan Pt will plan to return to live with his son at discharge. From there, pt would like to go home to [place]; however, it appears pt son has looked at [facility] in the area. Identified Discharge Needs: Need for either [facility] or home with son and continued mental health services. Currently Utilized Resources Currently Utilized Resources/P: Has a PCP established. Referrals Community Resources: Psychiatry Counseling Identified Problems/Hx/Goals Objectives/Short-Term Goals Short Term Goals: Dec. Anxiety/Panic, Decrease Isolation, Dec. Symp. Depression, Medication Stabilization, Promote Coping Skill Short Term Goals in Patient's: Get my anxiety under control and off this Xanax Interventions/Frequency Staff Interventions/Frequency&: Psychiatrist to assess pt at least 3x per week Social Worke to assess pt at least 2x per week. Nursing to complete 15 minute checks daily. Encourage participation in group activities as he withdraws to his room. 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 Community Follow-up PCP Community Provider/Family Inpu: Son is unable to be reached at this time. 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
[2019-06-29 15:48] VITALS: BP 152/76
--- NOTE | 2019-06-29 16:25 | NUR ---
Nursing note: Pt c/o anxiety early this afternoon. PRN was given per pt request @ 1400. Upon reassessment, pt stated that it did help a little bit. Will continue to monitor.
[2019-06-29] MEDS ORDERED: POLYVINYL ALCOHOL/POVIDONE/PF OPHTH SOLUTION DROPERETTE. OU PRN (19:00)
[2019-06-29] MEDS: traZODone 100 MG TABLET. PO SCH (20:52)
[2019-06-29] MEDS: ATORVASTATIN CALCIUM 10 MG TABLET. PO SCH (20:52)
[2019-06-29] MEDS: AMITRIPTYLINE HCL 25 MG TABLET PO SCH (20:52)
--- NOTE | 2019-06-29 21:10 | PDOC ---
Exam Note: Naveed Note: Please also refer to the separate dictated note~for this date of service dictated separately.~Patient seen individually. Discussed the patient with Nursing staff reviewed the chart.~Reviewed interim history and current functioning. Reviewed vital signs,~Labs/ Radiology~and current medications noted below. Continue current treatment with the changes noted in the dictated addendum note Assessment: Vital Signs/I&O: Vital Signs Date Time Temp Pulse Resp B/P (MAP) Pulse Ox O2 Delivery O2 Flow Rate FiO2 06/29/19 20:52 80 152/76 06/29/19 15:48 97.4 18 98 Room Air I & O 06/28/19 06/28/19 06/29/19 15:00 23:00 07:00 Intake Total 720 ml 360 ml Balance 720 ml 360 ml Current Medications: Meds: Current Medications Medications (Trade) Dose Ordered Sig/Adrianne Route PRN Reason Start Time Stop Time Status Last Admin Dose Admin Sertraline HCl (Zoloft) 50 mg DAILY PO 06/29/19 09:00 07/01/19 21:00 06/29/19 08:10 Atorvastatin Calcium (Lipitor) 10 mg HS PO 06/29/19 21:00 06/29/19 20:52 I have reviewed the current psychotropics carefully including drug interactions. Risk benefit ratio favors no change other than as noted in my dictated progress note. Diagnosis: Problems: (1) MDD (major depressive disorder) (2) Anxiety disorder (3) Major depressive disorder, recurrent episode (4) Impulse control disorder (5) Suicidal ideation NEISHA CIFUENTES MD Jun 29, 2019 21:09
--- NOTE | 2019-06-29 22:41 | PN ---
DATE: 06/28/2019 PSYCHIATRIC PROGRESS NOTE This late entry 06/28/2019 covers elements not covered in my initial note. SUBJECTIVE: I met with the patient evening of 06/28/2019. Per KRISTY Muniz, the patient slept 5-3/4 hours previous night. He remains somewhat anxious, somatic attention seeking with GI symptoms. He does complain of some reflux symptoms and I have asked the nursing staff to raise the head end of his bed. He did sleep better on Elavil [address] in [address] of the Remeron. REVIEW OF SYSTEMS: Other than above, no CV, , pulmonary, eye system symptoms on review. MENTAL STATUS EXAM: The patient is well oriented, talked at some length about the [employer] game and seems to follow along with the football. Abstraction fair, computation reasonable, language function intact, attention span short. Mood and affect somewhat anxious and less dysphoric. LABORATORY DATA: Reviewed. IMPRESSION: Major depressive disorder, recurrent; anxiety disorder, unspecified; panic disorder. Rest unchanged. PLAN: Continue current psychotropics from initial note. Valium, Zoloft, which is being increased, amitriptyline, Seroquel, trazodone. Rest unchanged for now. NEISHA CIFUENTES MD DR: TANNER/zonia JOB#: [id number] / [id number]
--- NOTE | 2019-06-29 23:33 | NUR ---
Nsg Note: Patient was in room at time of medication administration and assessments. Patient was calm, compliant and cooperative with all cares. Somewhat confused. patient asked if I would get him up around 0300 to take his anxiety medications. RN explained we do not wake patients up to give them anxiety medications for no reason and explained he is here to try to get off benzodiazepines.
[2019-06-30] MEDS: hydrOXYzine HCL 25 MG TABLET PO PRN (05:19)
[2019-06-30] MEDS: LEVOTHYROXINE 50 MCG TABLET PO SCH (05:29)
[2019-06-30 05:42] VITALS: BP 119/57
[2019-06-30] MEDS: THIAMINE 100 MG TABLET. PO SCH (08:58)
[2019-06-30] MEDS: QUEtiapine 25 MG TABLET. PO SCH ×3 (08:58→17:00)
[2019-06-30] MEDS: CYANOCOBALAMIN (VITAMIN B-12) 1,000 MCG TABLET. PO SCH (08:58)
[2019-06-30] MEDS: hydroCHLOROthiazide 25 MG TABLET PO SCH (08:58)
[2019-06-30] MEDS: SUCRALFATE 1 GM TABLET. PO SCH ×2 (08:59→20:05)
[2019-06-30] MEDS: amLODIPine BESYLATE 5 MG TABLET PO SCH (08:59)
[2019-06-30] MEDS: diazePAM 5 MG TABLET PO SCH ×2 (08:59→20:05)
[2019-06-30] MEDS: SERTRALINE 50 MG TABLET. PO SCH (08:59)
[2019-06-30] MEDS: LISINOPRIL 10 MG TABLET PO SCH ×2 (09:00→20:05)
[2019-06-30] MEDS ORDERED: SERTRALINE 25 MG TABLET. PO SCH (09:00)
--- NOTE | 2019-06-30 10:48 | NUR ---
Nursing note: Pt was in room for morning meds and assessment. Pt was compliant in taking his meds whole and was cooperative with his assessment. He denied having pain, but c/o feeling anxious and having dry eyes. PRN eye drops were given with his scheduled meds. He has been withdrawn to his room this morning. Will continue to monitor.
[2019-06-30] MEDS: MAG HYDROX/AL HYDROX/SIMETH 30 ML ORAL.SUSP PO PRN (11:04)
--- NOTE | 2019-06-30 11:16 | NUR ---
Nursing note: Pt c/o upset stomach. PRN mylanta given. Will continue to monitor.
[2019-06-30] MEDS: ACETAMINOPHEN 325 MG TABLET PO PRN (15:07)
[2019-06-30 15:44] VITALS: BP 133/76
--- NOTE | 2019-06-30 15:57 | NUR ---
Nursing note: Pt c/o headache 11/24. PRN given per pt request. Pt was a little irritable and med seeking, wondering why he couldn't have anything stronger. He was reeducated on the reason he is here and he verbalized understanding, but remained agitated. He was left alone to continue laying in bed. Will continue to monitor.
[2019-06-30] MEDS ORDERED: MAG HYDROX/AL HYDROX/SIMETH 30 ML ORAL.SUSP PO PRN (18:30)
[2019-06-30] MEDS: AMITRIPTYLINE HCL 25 MG TABLET PO SCH (20:05)
[2019-06-30] MEDS: ATORVASTATIN CALCIUM 10 MG TABLET. PO SCH (20:05)
[2019-06-30] MEDS: traZODone 100 MG TABLET. PO SCH (20:05)
[2019-06-30] MEDS: POLYVINYL ALCOHOL/POVIDONE/PF OPHTH SOLUTION DROPERETTE. OU SCH (20:05)
--- NOTE | 2019-06-30 20:58 | NUR ---
Pt withdrawn to room, socializing with roommate at shift change. Pt A/O x4, calm, and pleasant this evening. Pt cooperative with assessment and compliant with medications administered whole. Pt interactive with this nurse, voicing concerns re: anxiety in the middle of the night. Pt reports that he tends to awaken at 3 or 4 in the morning and is "a nervous wreck". This nurse provided pt with reassurance, assuring him that staff would be available all night should he need assistance and that he does have medication available should he need it. Pt seemed to be at ease after this interaction.
--- NOTE | 2019-06-30 21:14 | PDOC ---
Exam Note: Naveed Note: Please also refer to the separate dictated note~for this date of service dictated separately.~Patient seen individually. Discussed the patient with Nursing staff reviewed the chart.~Reviewed interim history and current functioning. Reviewed vital signs,~Labs/ Radiology~and current medications noted below. Continue current treatment with the changes noted in the dictated addendum note Assessment: Vital Signs/I&O: Vital Signs Date Time Temp Pulse Resp B/P (MAP) Pulse Ox O2 Delivery O2 Flow Rate FiO2 06/30/19 20:05 77 133/76 06/30/19 15:44 98.2 16 99 06/29/19 15:48 Room Air I & O 06/29/19 06/29/19 06/30/19 15:00 23:00 07:00 Intake Total 840 ml 600 ml Balance 840 ml 600 ml Current Medications: Meds: Current Medications Medications (Trade) Dose Ordered Sig/Adrianne Route PRN Reason Start Time Stop Time Status Last Admin Dose Admin Artificial Tears (Refresh Classic) 1 drop TID OU 06/30/19 21:00 07/05/19 21:00 06/30/19 20:05 I have reviewed the current psychotropics carefully including drug interactions. Risk benefit ratio favors no change other than as noted in my dictated progress note. Diagnosis: Problems: (1) MDD (major depressive disorder) (2) Anxiety disorder (3) Major depressive disorder, recurrent episode (4) Impulse control disorder (5) Suicidal ideation NEISHA CIFUENTES MD Jun 30, 2019 21:14
--- NOTE | 2019-06-30 21:44 | PN ---
DATE: 06/29/2019 PSYCHIATRIC PROGRESS NOTE This late entry 06/29/2019 covers elements not covered in my initial note. SUBJECTIVE: I met with the patient evening of 06/29/2019. Per KRISTY Carter, the patient slept 7-3/4 hours previous night. He has been compliant with his medications. He states he slept better on the Elavil, but was complaining of dry eyes and we will start him on Artificial Tears 3 times a day for 5 days. REVIEW OF SYSTEMS: No CV, , pulmonary, eye system symptoms on review. He has vague somatic symptoms consistent with his anxiety. MENTAL STATUS EXAM: Reasonably oriented. Speech coherent, abstraction fair, computation impaired, language function intact. Mood and affect showing improvement. LABORATORY DATA: Reviewed. IMPRESSION: Unchanged from initial note. PLAN: Increase Luvox to 75 mg a day after he has been on 50 for 3 days. Rest unchanged for now. Start the Artificial Tears as noted above. NEISHA CIFUENTES MD DR: TANNER/zonia JOB#: [id number] / [id number]
[2019-07-01] MEDS: hydrOXYzine HCL 25 MG TABLET PO PRN (02:47)
[2019-07-01 05:47] VITALS: BP 148/74
[2019-07-01 06:59] LABS: BASO % 1 % (0-3); EOS # 0.6 x10^3/uL (0.0-0.7); EOS % 13 % (0-3); HEMATOCRIT 38.5 % (39.0-53.0); HEMOGLOBIN 12.9 g/dL (13.0-17.5); LYMPH # 1.3 x10^3/uL (1.0-4.8); LYMPH % 25 % (24-48); MEAN CORPUSCULAR HEMOGLOBIN 28 pg (25-35); MEAN CORPUSCULAR HGB CONC 34 g/dL (31-37); MEAN CORPUSCULAR VOLUME 84 fL (79-100); MONO # 0.6 x10^3/uL (0.0-1.1); MONO % 13 % (0-9); NEUT # 2.4 x10^3uL (1.8-7.7); NEUT % 48 % (31-73); PLATELET COUNT 230 x10^3/uL (140-400); RED BLOOD COUNT 4.56 x10^6/uL (4.30-5.70); RED CELL DISTRIBUTION WIDTH 15.2 % (11.5-14.5)
[2019-07-01 07:20] LABS: ALBUMIN 3.2 g/dL (3.4-5.0); CALCIUM 8.3 mg/dL (8.5-10.1); CREATININE 1.2 mg/dL (0.7-1.3); GFR 57.7; POTASSIUM 3.9 mmol/L (3.5-5.1); TOTAL BILIRUBIN 0.4 mg/dL (0.2-1.0); TOTAL PROTEIN 6.4 g/dL (6.4-8.2)
[2019-07-01] MEDS: THIAMINE 100 MG TABLET. PO SCH (09:16)
[2019-07-01] MEDS: SERTRALINE 50 MG TABLET. PO SCH (09:16)
[2019-07-01] MEDS: hydroCHLOROthiazide 25 MG TABLET PO SCH (09:16)
[2019-07-01] MEDS: diazePAM 5 MG TABLET PO SCH ×2 (09:16→20:15)
[2019-07-01] MEDS: QUEtiapine 25 MG TABLET. PO SCH ×3 (09:17→17:33)
[2019-07-01] MEDS: CYANOCOBALAMIN (VITAMIN B-12) 1,000 MCG TABLET. PO SCH (09:17)
[2019-07-01] MEDS: LISINOPRIL 10 MG TABLET PO SCH ×2 (09:17→20:15)
[2019-07-01] MEDS: SUCRALFATE 1 GM TABLET. PO SCH ×2 (09:17→20:15)
[2019-07-01] MEDS: amLODIPine BESYLATE 5 MG TABLET PO SCH (09:17)
[2019-07-01] MEDS: POLYVINYL ALCOHOL/POVIDONE/PF OPHTH SOLUTION DROPERETTE. OU SCH ×3 (09:18→20:14)
--- NOTE | 2019-07-01 12:55 | NUR ---
Nursing note: Pt in his room this morning for meds and assessment. He was compliant with his meds whole and was cooperative with his assessment. He had no complaints this morning. Pt has been withdrawn to his room all morning and he is currently sleeping in his bed. Will continue to monitor.
[2019-07-01 15:52] VITALS: BP 126/78
[2019-07-01] MEDS: traZODone 100 MG TABLET. PO SCH (20:15)
[2019-07-01] MEDS: ATORVASTATIN CALCIUM 10 MG TABLET. PO SCH (20:15)
[2019-07-01] MEDS ORDERED: AMITRIPTYLINE HCL 50 MG TABLET PO SCH (21:00)
--- NOTE | 2019-07-01 21:42 | PN ---
DATE: 06/30/2019 PSYCHIATRIC PROGRESS NOTE This late entry 06/30/2019 covers elements not covered in my initial note. SUBJECTIVE: I met with the patient evening of 06/30/2019. Per KRISTY Carter, the patient slept 6-1/2 hours previous night. He was pleasant in the morning, compliant with medications. Later in the morning was medication seeking, wanting extra Mylanta and his eyedrops. Complained of headache, received Tylenol and wanting higher dosages of this. I met with him at length in his room individually. Other than complain of some dry eyes and vague GI symptoms, no CV, or pulmonary system symptoms on review. MENTAL STATUS EXAM: Reasonably oriented. Speech is coherent, abstraction fair, computation impaired, language function intact, attention span short. Mood and affect remains somewhat anxious, labile, but showing improvement. LABORATORY DATA: Reviewed. IMPRESSION: Major depressive disorder; anxiety disorder, unspecified. PLAN: Continue Valium at current dosage, Zoloft. We will increase Seroquel from 12.5 mg twice a day, 25 mg once a day to 25 mg 3 times a day. Continue trazodone 100 mg at bedtime, Remeron 15 mg at bedtime was changed to amitriptyline currently 25 mg at bedtime, may need to increase this to 50 mg at bedtime. Rest unchanged for now. MAN Braulio CIFUENTES MD DR: TANNER/zonia JOB#: [id number] / [id number]
--- NOTE | 2019-07-01 22:01 | PDOC ---
Exam Note: Naveed Note: Please also refer to the separate dictated note~for this date of service dictated separately.~Patient seen individually. Discussed the patient with Nursing staff reviewed the chart.~Reviewed interim history and current functioning. Reviewed vital signs,~Labs/ Radiology~and current medications noted below. Continue current treatment with the changes noted in the dictated addendum note Assessment: Vital Signs/I&O: Vital Signs Date Time Temp Pulse Resp B/P (MAP) Pulse Ox O2 Delivery O2 Flow Rate FiO2 07/01/19 20:15 78 126/78 07/01/19 15:52 98.1 19 98 Room Air I & O 06/30/19 06/30/19 07/01/19 15:00 23:00 07:00 Intake Total 840 ml 600 ml Balance 840 ml 600 ml Labs: Laboratory Tests Test 07/01/19 06:17 White Blood Count 5.0 x10^3/uL (4.0-11.0) Red Blood Count 4.56 x10^6/uL (4.30-5.70) Hemoglobin 12.9 g/dL (13.0-17.5) L Hematocrit 38.5 % (39.0-53.0) L Mean Corpuscular Volume 84 fL (79-100) Mean Corpuscular Hemoglobin 28 pg (25-35) Mean Corpuscular Hemoglobin Concent 34 g/dL (31-37) Red Cell Distribution Width 15.2 % (11.5-14.5) H Platelet Count 230 x10^3/uL (140-400) Neutrophils (%) (Auto) 48 % (31-73) Lymphocytes (%) (Auto) 25 % (24-48) Monocytes (%) (Auto) 13 % (0-9) H Eosinophils (%) (Auto) 13 % (0-3) H Basophils (%) (Auto) 1 % (0-3) Neutrophils # (Auto) 2.4 x10^3uL (1.8-7.7) Lymphocytes # (Auto) 1.3 x10^3/uL (1.0-4.8) Monocytes # (Auto) 0.6 x10^3/uL (0.0-1.1) Eosinophils # (Auto) 0.6 x10^3/uL (0.0-0.7) Basophils # (Auto) 0.0 x10^3/uL (0.0-0.2) Sodium Level 136 mmol/L (136-145) Potassium Level 3.9 mmol/L (3.5-5.1) Chloride Level 99 mmol/L (98-107) Carbon Dioxide Level 32 mmol/L (21-32) Anion Gap 5 (6-14) L Blood Urea Nitrogen 19 mg/dL (8-26) Creatinine 1.2 mg/dL (0.7-1.3) Estimated GFR (Cockcroft-Gault) 57.7 BUN/Creatinine Ratio 16 (6-20) Glucose Level 95 mg/dL (70-99) Calcium Level 8.3 mg/dL (8.5-10.1) L Total Bilirubin 0.4 mg/dL (0.2-1.0) Aspartate Amino Transferase (AST) 13 U/L (15-37) L Alanine Aminotransferase (ALT) 24 U/L (16-63) Alkaline Phosphatase 56 U/L (46-116) Total Protein 6.4 g/dL (6.4-8.2) Albumin 3.2 g/dL (3.4-5.0) L Albumin/Globulin Ratio 1.0 (1.0-1.7) Current Medications: Meds: Current Medications Medications (Trade) Dose Ordered Sig/Adrianne Route PRN Reason Start Time Stop Time Status Last Admin Dose Admin Quetiapine Fumarate (SEROquel) 25 mg 0900,1700 PO 07/01/19 09:00 07/01/19 17:33 Amitriptyline HCl (Elavil) 50 mg QHS PO 07/01/19 21:00 07/01/19 20:15 I have reviewed the current psychotropics carefully including drug interactions. Risk benefit ratio favors no change other than as noted in my dictated progress note. Diagnosis: Problems: (1) MDD (major depressive disorder) (2) Anxiety disorder (3) Major depressive disorder, recurrent episode (4) Impulse control disorder (5) Suicidal ideation NEISHA CIFUENTES MD Jul 01, 2019 22:01
--- NOTE | 2019-07-01 22:34 | NUR ---
Nursing Note: Pt withdrawn to room, lying in bed, socializing with roommate at shift change. Pt A/O, calm, and pleasant this evening. Pt cooperative with assessment and compliant with medications administered whole. PRN Mylanta administered for c/o reflux.
[2019-07-02] MEDS: ACETAMINOPHEN 325 MG TABLET PO PRN (05:17)
[2019-07-02] MEDS: LEVOTHYROXINE 50 MCG TABLET PO SCH (05:17)
[2019-07-02] MEDS: hydrOXYzine HCL 25 MG TABLET PO PRN (05:17)
--- NOTE | 2019-07-02 05:36 | RAD ---
Pelvis and right hip: Reason for examination: Fell. Unable to weight on right hip with pain at the right hip and pelvis. Single view the pelvis appears to show disruption to the lateral margin at the superior acetabulum of the right hip acetabular fracture cannot be excluded. No other site of fracture seen at the pelvis. Proximal femurs bilaterally appear to be intact. 2 views of the right hip again show disruption to the lateral rim of the superior acetabulum and acetabular fracture cannot be excluded. The proximal femur however appears to be intact. Joint space is maintained. IMPRESSION: Disruption to the lateral rim of the superior acetabulum on the right. Fracture cannot be excluded. Further evaluation with pelvic CT should be considered. Electronically signed by: Letha Hancock MD (07/02/2019 5:33 AM) [facility]
--- NOTE | 2019-07-02 06:18 | NUR ---
Nursing Note: Pt presented to the nurse's station this morning @0445 with c/o anxiety and requesting his anxiety medication. This nurse assured pt that the medication would be brought to him. Pt turned to return to his room, which is directly across from the nurse's station, when he suddenly collapsed on the floor. VS obtained immediately and were within normal limits. Pt c/of severe pain when staff performing ROM to R hip/leg. STAT right hip and pelvic x-ray ordered. Staff assisted pt into w/c and he was taken down for x-ray. Resulted x-ray could not exclude pelvic fracture and follow up with pelvic CT recommended. Call placed to Dr. Segovia, orders received and processed. Pt currently lying in bed with ice pack to Right hip. Order for pain medication also received at this time. Attempted to call son/DPOA, message to return call had to be left as there was no answer.
[2019-07-02 06:24] VITALS: BP 110/82
[2019-07-02] MEDS: HYDROcodone/APAP 5/325MG 1 TAB TABLET PO PRN ×3 (06:39→14:51)
[2019-07-02] MEDS ORDERED: ATOR10TA60 PO (07:25)
[2019-07-02] MEDS ORDERED: LISI10TA2 PO (07:26)
[2019-07-02] MEDS ORDERED: ACET325T9 PO (07:30)
[2019-07-02] MEDS ORDERED: AMIT50TA PO (07:31)
[2019-07-02] MEDS ORDERED: DOCU100T5 PO (07:32)
[2019-07-02] MEDS ORDERED: BISM525O8 PO (07:32)
[2019-07-02] MEDS ORDERED: HYDR-2155 PO (07:33)
[2019-07-02] MEDS ORDERED: MAGN2400 PO (07:34)
[2019-07-02] MEDS ORDERED: MAG-115 PO (07:34)
[2019-07-02] MEDS ORDERED: METH28OI2 TP (07:35)
[2019-07-02] MEDS ORDERED: POLY15DR7 OU (07:36)
[2019-07-02] MEDS ORDERED: QUET25TA5 PO ×2 (07:36→07:37)
[2019-07-02] MEDS ORDERED: SERT50TA PO (07:37)
[2019-07-02] MEDS ORDERED: HYDR25TA PO (07:38)
[2019-07-02] MEDS ORDERED: TRAZ-125 PO ×2 (07:39)
--- NOTE | 2019-07-02 07:54 | NUR ---
Patient NPO awaiting results of CT of hip/pelvis.
--- NOTE | 2019-07-02 08:06 | RAD ---
EXAM: CT Pelvis without IV contrast INDICATION: Fall with pain. Follow-up x-ray results. TECHNIQUE: Multi-detector row images were acquired from the iliac crest through the lesser trochanters without the use of IV contrast. Sagittal and coronal images were acquired from the transaxial data. All CT scans performed at this facility utilize dose optimization techniques as appropriate to the exam, including the following: Automated exposure control and adjustment of the mA and/or KV according to patient size (this includes techniques or standardized protocols for targeted exams where dose is indication/reason for exam). ORAL CONTRAST: None DLP 260.5 mGycm COMPARISON: Pelvis x-ray of 07/02/2019 at 5:07 AM FINDINGS: The absence of IV contrast limits evaluation of soft tissue pathology. OSSEOUS: The interruption in the lateral cortex of the right acetabulum seen on plain film is confirmed on CT as an acute comminuted fracture with superior displacement. The fracture extends anteriorly into the lateralmost aspect of the superior pubic ramus and superiorly into the anterior superior iliac spine. The right femoral head and neck are intact. No hip dislocation. BLADDER: Unremarkable REPRODUCTIVE ORGANS: Unremarkable BOWEL: Visualized bowel is unremarkable. MESENTERY/PERITONEUM/RETROPERITONEUM: Unremarkable VASCULAR: Unremarkable LYMPH NODES: No adenopathy SOFT TISSUES: Bilateral surgical clips in the pelvis compatible with previous shae dissection is present. There is asymmetric soft tissue swelling compatible with intramuscular hematoma and extraperitoneal right pelvic hemorrhage. IMPRESSION: Acute comminuted right pelvic ring fracture without hip dislocation Electronically signed by: Ira Boone MD (07/02/2019 8:03 AM) [facility]
--- NOTE | 2019-07-02 08:40 | NUR ---
Notified Dr. Segovia of results of xray and CT of hip/pelvis. Dr. Segovia to consult with ortho at [place] and call back with orders. Son/DPOA Bennett Rouse called unit. Nurse informed him of patients fall, xray and CT results. DPOA is willing to do whatever treatment is recommended by Dr. Segovia and is okay with a transfer to [place] if that is required. Nurse will call DPOA back when treatment plan is formulated. DPOA authorized nurse to leave a message at [phone] as he will be at work and unable to answer. He stated he will return calls after messages are received.
[2019-07-02] MEDS ORDERED: SERTRALINE 25 MG TABLET. PO SCH (09:00)
[2019-07-02] MEDS: THIAMINE 100 MG TABLET. PO SCH (10:27)
[2019-07-02] MEDS: CYANOCOBALAMIN (VITAMIN B-12) 1,000 MCG TABLET. PO SCH (10:27)
[2019-07-02] MEDS: SUCRALFATE 1 GM TABLET. PO SCH (10:28)
[2019-07-02] MEDS: hydroCHLOROthiazide 25 MG TABLET PO SCH (10:28)
[2019-07-02] MEDS: LISINOPRIL 10 MG TABLET PO SCH (10:28)
[2019-07-02] MEDS: diazePAM 5 MG TABLET PO SCH (10:29)
--- NOTE | 2019-07-02 10:30 | NUR ---
Spoke to Dr. Segovia regarding patients nausea. Order for Zofran received. Continue NPO and hold scheduled morning medications, except for pain medication and Zofran.
[2019-07-02 10:33] VITALS: BP 110/82
[2019-07-02] MEDS: amLODIPine BESYLATE 5 MG TABLET PO SCH (10:33)
[2019-07-02] MEDS: QUEtiapine 25 MG TABLET. PO SCH ×2 (10:33→12:14)
[2019-07-02] MEDS: POLYVINYL ALCOHOL/POVIDONE/PF OPHTH SOLUTION DROPERETTE. OU SCH ×2 (10:35→14:17)
[2019-07-02] MEDS ORDERED: ONDANSETRON ODT 4 MG TAB.RAPDIS PO PRN (10:40)
[2019-07-02] MEDS ORDERED: ONDA4TAB12 PO (11:24)
--- NOTE | 2019-07-02 11:45 | NUR ---
Patient to transfer to [facility] for pelvic ring fracture. All scheduled morning medications held per Dr. Segovia. PRN hydrocodone/APAP 5/325MG given at 0645. PRN ondansetron ODT 4mg give at 1145 PRN hydrocodone/APAP 5/325MG given at 1155 Patient is a FULL code. Patient has an enacted DPOA Bennett Rouse son [phone] (copy attached) No known allergies Regular diet/thin liquids Last BM 07/01/2019 Most current labs 07/01/2019 (attached) Was up ad renu with steady gait prior to fall. Medical HX: MDD, HX ETOH abuse, GERD, HTN, essential tremors, PIPE, HX subdural hematoma, HX falls, aortic sclerosis, HLD, hypothyroid, blurred vision, HX prostate cancer/prostate removal, migraines, arthritis, joint pain, cataract extraction Please call with any questions. [phone]
--- NOTE | 2019-07-02 13:45 | NUR ---
patient complained of anxiety but when nurse went to assess him he was sleeping in his bed. Will continue to monitor. patient remains NPO.
--- NOTE | 2019-07-02 14:43 | NUR ---
PRN hydrocodone/APAP 5/325mg given for pain per order. Patient rates pain 10/10 at this time. EMS contacted to pick patient up for transport to [facility]. Son/DPOA Bennett Rouse was notified of floor [id number] bed 2. Contact information for [facility] given to DPOA as well.
--- NOTE | 2019-07-02 15:25 | NUR ---
Transition Record was faxed to follow-up provider with the following elements: Reason for admission, procedures, tests, principal diagnosis, pending studies, patient instructions, 07/01 contact information for unit, phone number to obtain pending test results, plan for follow-up care, physician follow-up, advanced directive information, and medication list with dose, duration and instructions. This information was included in the following documents: History and physical, lab results, study results, progress notes, social work planning form, DC instruction form, patient visit summary, and medication reconciliation form. Date & time record faxed: 07/02/2019 1420 Record faxed to: [place] [id number] bed Record discussed with/ report given to: KRISTY Crawford
--- NOTE | 2019-07-02 20:49 | PDOC ---
Exam Note: Naveed Note: Please also refer to the separate dictated note~for this date of service dictated separately.~Patient seen individually. Discussed the patient with Nursing staff reviewed the chart.~Reviewed interim history and current functioning. Reviewed vital signs,~Labs/ Radiology~and current medications noted below. Continue current treatment with the changes noted in the dictated addendum note Assessment: Vital Signs/I&O: Vital Signs Date Time Temp Pulse Resp B/P (MAP) Pulse Ox O2 Delivery O2 Flow Rate FiO2 07/02/19 14:51 Room Air 07/02/19 10:33 76 110/82 07/02/19 06:39 18 07/02/19 06:24 97.3 93 I & O 07/01/19 07/01/19 07/02/19 15:00 23:00 07:00 Intake Total 1080 ml 580 ml Balance 1080 ml 580 ml Current Medications: Meds: Current Medications Medications (Trade) Dose Ordered Sig/Adrianne Route PRN Reason Start Time Stop Time Status Last Admin Dose Admin Amitriptyline HCl (Elavil) 50 mg QHS PO 07/01/19 21:00 07/02/19 15:28 DC 07/01/19 20:15 Acetaminophen/ Hydrocodone Bitart (Lortab 5/325) 1 tab PRN Q4HRS PRN PO PAIN 07/02/19 06:15 07/02/19 15:28 DC 07/02/19 14:51 Ondansetron HCl (Zofran Odt) 4 mg PRN Q4HRS PRN PO NAUSEA/VOMITING 07/02/19 10:40 07/02/19 15:28 DC 07/02/19 10:52 I have reviewed the current psychotropics carefully including drug interactions. Risk benefit ratio favors no change other than as noted in my dictated progress note. Diagnosis: Problems: (1) Altered mental status (2) UTI (urinary tract infection) (3) MDD (major depressive disorder) (4) Anxiety disorder (5) Major depressive disorder, recurrent episode (6) Impulse control disorder (7) Suicidal ideation NEISHA CIFUENTES MD Jul 02, 2019 20:49
--- NOTE | 2019-07-03 11:19 | DS ---
DATE OF DISCHARGE: 07/02/2019 DISCHARGE SUMMARY AND PSYCHIATRIC PROGRESS NOTE This late entry date of service 07/02/2019 covers elements not covered in my initial note. REASON FOR ADMISSION: Please refer to the admission history for details. Briefly, the patient is an 84-year-old male, referred to us from [facility] where he presented from home on account of wanting to quit taking Xanax. He was having passive suicidal ideation with marked anxiety, feeling depressed, having panic attacks, marked insomnia. He experienced benzodiazepine withdrawal at [facility] and gradually substituted Valium 2.5 mg a.m. and [address] in [address] of the Xanax and detoxified him. He continued to be anxious, had a psychiatric consultation and felt he needed inpatient psychiatric stabilization to detoxify him from the benzodiazepines and he was referred to us. He had been previously living out of [facility] and came to this area to be closer to his son, but wanted to get back to [place] and all of this was further worsening his anxiety. SIGNIFICANT FINDINGS AND CLINICAL COURSE: Following admission, the patient was seen daily individually by myself from a psychiatric standpoint, medical followup per Dr. Segovia. The patient has a past history of alcohol abuse in the distant past. He was extremely anxious, complained of marked insomnia, having panic attacks, feeling overwhelmed with passive suicidal ideation. No active suicidal ideation. Adjustments were made in his psychotropics. The Valium was continued with a plan to gradually taper it once his moods were stable and he was started on Zoloft, increasing to 75 mg a day and Seroquel to augment the Zoloft in increments increasing to 25 mg t.i.d., Remeron 15 mg at bedtime was changed to amitriptyline 50 mg at bedtime and initially starting at 25 mg p.o. at bedtime due to his marked and recalcitrant insomnia and it was felt the amitriptyline might help the anxiety and mood symptoms as well and help to augment the Zoloft. The plan was still to taper off the Valium and to some extent the patient was doing better with respect to his mood and anxiety. 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 He has sustained a hip fracture. Dr. Herrera was consulted Orthopedics at [place] and recommended transfer to . Prior to discharge on 07/02/2019, no CV, , pulmonary, eye system symptoms on review. MENTAL STATUS EXAM: Reasonably oriented. Speech is coherent, abstraction fair, computation reasonable, language function intact. Mood and affect still anxious, somewhat dysphoric, but improved. No suicidal ideation. CONDITION AT DISCHARGE: Compromised from a medical standpoint, status post fall with hip fracture. Psychiatrically, he was doing better, but still needed to be tapered off the Valium. FINAL DIAGNOSES: Major depressive disorder, recurrent, in partial remission, generalized anxiety disorder, panic disorder, benzodiazepine dependence, past history of alcohol abuse, history of recurrent falls with subdural hematoma in recent past. Rest unchanged from admission. DISCHARGE MEDICATIONS: Please refer to the MRAD. Further psychiatric and medical followup at , but hopefully the Valium can be tapered the patient stabilized on the Seroquel and left unchanged, though he should not be on Remeron since this was changed to amitriptyline. Time for discharge day management greater than 30 minutes. MAN Braulio CIFUENTES MD DR: TANNER/zonia JOB#: [id number] / [id number]
--- NOTE | 2019-07-03 13:32 | PN ---
DATE: 07/01/2019 PSYCHIATRIC PROGRESS NOTE This late entry 07/01/2019 covers elements not covered in my initial note. SUBJECTIVE: I met with the patient evening of 07/01/2019. Per KRISTY Carter, the patient slept 6 hours previous night. He has been pleasant, quite anxious, but during the day, was less anxious per nursing report. He received Atarax at 3:00 a.m. REVIEW OF SYSTEMS: Positive for the anxiety. No CV, , pulmonary, eye, ENT system symptoms on review. MENTAL STATUS EXAM: Reasonably oriented. Speech is coherent, as I sat with him on his bed in his room at length as we met individually. Abstraction fair, computation somewhat impaired, language function intact, attention span short. No psychotic symptoms, suicidal or homicidal ideation. LABORATORY DATA: Reviewed. IMPRESSION: Unchanged from initial note. PLAN: Increase amitriptyline to 50 mg at bedtime. This has replaced the Remeron. We will consider tapering the Valium just as soon as his moods are stable on the Seroquel. Rest unchanged for now. MAN Braulio CIFUENTES MD DR: TANNER/zonia JOB#: [id number] / [id number]
== END 2019-07-02 15:20 | disposition short-term general hospital (02) | DRG 885 ==
LOC: GEROPSY 15:25
PROVIDERS: ADMIT Psychiatry & Neurology Psychiatry; ATTEND Psychiatry & Neurology Psychiatry
DX: F33.2 Major depressive disorder, recurrent severe without psychotic features (principal); F13.239 Sedative, hypnotic or anxiolytic dependence with withdrawal, unspecified; N39.0 Urinary tract infection, site not specified; R45.851 Suicidal ideations; E03.9 Hypothyroidism, unspecified; E78.5 Hyperlipidemia, unspecified; F10.10 Alcohol abuse, uncomplicated; F33.41 Major depressive disorder, recurrent, in partial remission; F40.01 Agoraphobia with panic disorder; F41.1 Generalized anxiety disorder; F63.9 Impulse disorder, unspecified; G25.0 Essential tremor; G47.00 Insomnia, unspecified; I10 Essential (primary) hypertension; Z79.899 Other long term (current) drug therapy; Z85.46 Personal history of malignant neoplasm of prostate; Z90.79 Acquired absence of other genital organ(s); Z98.41 Cataract extraction status, right eye; Z98.42 Cataract extraction status, left eye; G43.909 Migraine, unspecified, not intractable, without status migrainosus; K21.9 Gastro-esophageal reflux disease without esophagitis; M19.90 Unspecified osteoarthritis, unspecified site; W18.39XA Other fall on same level, initial encounter; Y93.89 Activity, other specified; Y92.89 Other specified places as the place of occurrence of the external cause; Y99.8 Other external cause status
CPT/HCPCS: 36415; 72192; 73502; 80053; 80061; 81001; 82306; 82607; 83036; 83540; 83550; 83735; 84436; 84443; 84480; 85025; 86592; 93005; Q0162; 99285-25